=== PATIENT | female | born 1930 | race Caucasian/White ===

== ENCOUNTER → 2016-03-21 | Outpatient (CLI) | payer MEDICARE ==
[~2016-03-21] MED LIST: AMOXICILLIN875 MG; ASPIRIN81 M1 PO; CARVEDILOL25 MG PO; CELEBREX200 MG; CLARITIN10 MG PO; COREG12.5 M1 PO; HYDROCODONE-APA1 TA1; LEXAPRO10 MG PO; NEURONTIN100 MG PO; NORCO 10-325 T1 EACH PO; PROTONIX40 MG; SIMVASTATIN40 MG; SYNTHROID0.05 MG; VICODIN 5-3001 EACH PO; XANAX0.25 MG PO; ZOCOR10 MG PO; ZOLOFT100 MG
== END | disposition home or self-care (01) ==
LOC: NM 09:49
DX: M25.552 Pain in left hip (principal); M54.5 Low back pain; Z96.653 Presence of artificial knee joint, bilateral; M25.561 Pain in right knee; M25.562 Pain in left knee

== ENCOUNTER → 2016-05-08 | Day surgery (SDC) | payer MEDICARE ==
[2016-05-08 08:04] LABS: BASO % 0.1 % (0.0-1.0); EOS # 0.2 10*3/uL (0.0-0.4); HEMATOCRIT 39.6 % (37.0-47.0); HEMOGLOBIN 13.6 g/dl (12.0-16.0); IG # 0.1 10*3/uL (0.0-0.1); LYMPH # 3.5 10*3/uL (1.3-4.4); LYMPH % 38.1 % (27.0-41.0); MEAN CORPUSCULAR HGB 34.7 pg (27.0-31.0); MEAN CORPUSCULAR HGB CONC 34.3 g/dl (33.0-37.0); MEAN PLATELET VOLUME 8.7 fl (9.6-12.3); MONO # 0.8 10*3/uL (0.1-1.0); MONO % 8.7 % (3.0-9.0); NEUT # 4.7 10*3/uL (2.3-7.9); NEUT % 50.4 % (47.0-73.0); PLATELET COUNT AUTOMATED 204 10*3/uL (130-400); RED BLOOD COUNT 3.92 10*6/uL (4.10-5.10); RED CELL DISTRI WIDTH 13.3 % (0-14.5); WHITE BLOOD COUNT 9.2 10*3/uL (4.8-10.8)
[2016-05-08 08:13] LABS: PROTHROMBIN TIME 10.9 SECONDS (9.0-12.4)
== END | disposition home or self-care (01) ==
LOC: SDC 03-19 11:00 → LAB 02:20 → SDC 02:20 → LAB 09:00
PROVIDERS: Orthopaedic Surgery
DX: M54.5 Low back pain (principal); M41.9 Scoliosis, unspecified; F41.9 Anxiety disorder, unspecified; K21.9 Gastro-esophageal reflux disease without esophagitis; I10 Essential (primary) hypertension; E03.9 Hypothyroidism, unspecified; G47.30 Sleep apnea, unspecified; Z96.653 Presence of artificial knee joint, bilateral; Z83.3 Family history of diabetes mellitus; Z82.49 Family history of ischemic heart disease and other diseases of the circulatory system

== ENCOUNTER → 2016-05-20 | Outpatient (CLI) | payer MEDICARE | END | disposition home or self-care (01) | LOC: CT 08:50 | DX: R42 Dizziness and giddiness (principal) ==

== ENCOUNTER 2019-02-25 21:48 | Emergency (ER) | payer MEDICARE ==
[~2019-02-25] VITALS: Ht 165.1 cm; Wt 86.2 kg
[2019-02-25] MEDS ORDERED: PANTOPRAZOLE SO40 MG PO (21:53)
[2019-02-25] MEDS ORDERED: FAMOTIDINE40 MG PO (21:53)
[2019-02-25 21:54] VITALS: BP 116/66
[2019-02-25] MEDS ORDERED: MIRTAZAPINE15 M2 PO (21:54)
[2019-02-25 23:22] LABS: BASO % 0.3 % (0.0-1.0); EOS # 0.2 10*3/uL (0.0-0.4); EOS % 1.7 % (1.0-4.0); HEMOGLOBIN 14.2 g/dl (12.0-16.0); LYMPH % 9.9 % (27.0-41.0); MEAN CELL VOLUME 104.4 fl (81.0-99.0); MEAN CORPUSCULAR HGB 34.5 pg (27.0-31.0); MEAN PLATELET VOLUME 9.5 fl (9.6-12.3); MONO # 0.6 10*3/uL (0.1-1.0); MONO % 5.5 % (3.0-9.0); NEUT # 8.5 10*3/uL (2.3-7.9); NEUT % 82.4 % (47.0-73.0); PLATELET COUNT AUTOMATED 150 10*3/uL (130-400); RED BLOOD COUNT 4.12 10*6/uL (4.10-5.10); RED CELL DISTRI WIDTH 12.9 % (0-14.5); WHITE BLOOD COUNT 10.3 10*3/uL (4.8-10.8)
[2019-02-25 23:44] LABS: ALBUMIN 3.8 gm/dl (3.1-4.5); ALKALINE PHOSPHATASE 93 U/L (45-117); BUN 23 mg/dl (7-24); CHLORIDE 106 mmol/L (98-107); CREATININE 0.88 mg/dL (0.55-1.02); LIPASE 121 U/L (73-393); POTASSIUM 4.1 mmol/L (3.5-5.1); SGOT/AST 10 IU/L (3-35); SGPT/ALT 13 U/L (12-78); SODIUM 137 mmol/L (136-145); TOTAL PROTEIN 7.3 gm/dL (6.4-8.2)
[2019-02-26 02:59] LABS: BILIRUBIN NEGATIVE (NEGATIVE); BLOOD NEGATIVE (NEGATIVE); CLARITY CLEAR (CLEAR); COLOR YELLOW (YELLOW); GLUCOSE NEGATIVE (NEGATIVE); KETONE NEGATIVE (NEGATIVE); LEUKO ESTERASE NEGATIVE (NEGATIVE); NITRITE NEGATIVE (NEGATIVE); PH 6.5 (5.0-9.0); UROBILINOGEN 0.2 E.U./dl (0.2-1.0)
[2019-02-26 03:05] LABS: BACTERIA TRACE; COARSE GRANULAR CAST 0-2; EPITHELIAL CELLS 0-2; HYALINE CAST 0-2; WBC 0-2 wbc/hpf (0-5)
== END 2019-02-26 03:35 | disposition home or self-care (01) ==
LOC: ED 21:48
PROVIDERS: Emergency Medicine
DX: K52.9 Noninfective gastroenteritis and colitis, unspecified (principal); R11.2 Nausea with vomiting, unspecified; K21.9 Gastro-esophageal reflux disease without esophagitis; I10 Essential (primary) hypertension; E03.9 Hypothyroidism, unspecified; Z88.6 Allergy status to analgesic agent; Z79.899 Other long term (current) drug therapy; Z79.82 Long term (current) use of aspirin; Z95.0 Presence of cardiac pacemaker

== ENCOUNTER 2021-08-06 10:51 | Inpatient (IN) | payer MEDICARE ==
[~2021-08-06] VITALS: Ht 170.2 cm; Wt 92.1 kg
[~2021-08-06 10:51] MED LIST changes: +FAMOTIDINE40 MG PO; +MIRTAZAPINE15 M2 PO; +PANTOPRAZOLE SO40 MG PO
[2021-08-06 11:07] VITALS: BP 147/61
[2021-08-06 11:39] LABS: BASO % 0.3 % (0.0-1.0); EOS # 0.1 10*3/uL (0.0-0.4); EOS % 0.9 % (1.0-4.0); HEMATOCRIT 33.9 % (37.0-47.0); LYMPH # 1.7 10*3/uL (1.3-4.4); LYMPH % 24.4 % (27.0-41.0); MEAN CORPUSCULAR HGB 34.1 pg (27.0-31.0); MEAN CORPUSCULAR HGB CONC 34.8 g/dl (33.0-37.0); MEAN PLATELET VOLUME 9.1 fl (9.6-12.3); MONO # 1.1 10*3/uL (0.1-1.0); MONO % 16.3 % (3.0-9.0); NEUT # 3.9 10*3/uL (2.3-7.9); NEUT % 57.7 % (47.0-73.0); PLATELET COUNT AUTOMATED 174 10*3/uL (130-400); RED BLOOD COUNT 3.46 10*6/uL (4.10-5.10); RED CELL DISTRI WIDTH 12.3 % (0-14.5); WHITE BLOOD COUNT 6.8 10*3/uL (4.8-10.8)
[2021-08-06 11:40] LABS: ABG BASE EXCESS 2.3 mmol/L (-2.0-2.0); ARTERIAL BLOOD GAS PH 7.438 (7.35-7.45); ARTERIAL BLOOD GAS PO2 63.6 (80-90)
[2021-08-06 11:50] LABS: ACT PARTIAL THROMBO TIME 31.6 SECONDS (20.0-32.1)
[2021-08-06 11:55] LABS: ALKALINE PHOSPHATASE 78 U/L (45-117); BUN 11 mg/dl (7-24); CHLORIDE 98 mmol/L (98-107); POTASSIUM 3.8 mmol/L (3.5-5.1); SGOT/AST 11 IU/L (3-35); SGPT/ALT 12 U/L (12-78); SODIUM 130 mmol/L (136-145); TOTAL PROTEIN 6.7 gm/dL (6.4-8.2)
[2021-08-06] MEDS ORDERED: NEURONTIN300 MG PO (12:34)
[2021-08-06] MEDS ORDERED: DULOXETINE HCL30 MG PO (12:35)
[2021-08-06] MEDS ORDERED: LORAZEPAM0.5 MG PO (12:36)
[2021-08-06] MEDS ORDERED: ZOCOR40 MG PO (12:36)
[2021-08-06] MEDS ORDERED: B-12500 MC1 PO (12:37)
[2021-08-06] MEDS ORDERED: GOOD NEIGHBOR L10 MG PO (12:38)
[2021-08-06] MEDS ORDERED: LASIX20 MG PO (12:38)
[2021-08-06 13:08] LABS: BILIRUBIN 1+ (Negative); BLOOD Negative (Negative); CLARITY Clear (Clear); COLOR Dark Yellow (Yellow); GLUCOSE Negative (Negative); KETONE 2+ (Negative); LEUKO ESTERASE Negative (Negative); NITRITE Negative (Negative)
[2021-08-06 13:42] LABS: BACTERIA 1+; MUCOUS 2+
[2021-08-06 16:30] VITALS: BP 107/70
[2021-08-06 20:00] VITALS: BP 119/77
[2021-08-07] VITALS: BP 152/67
[2021-08-07 06:10] LABS: BUN 13 mg/dl (7-24); CHLORIDE 89 mmol/L (98-107); POTASSIUM 3.6 mmol/L (3.5-5.1); SODIUM 128 mmol/L (136-145)
[2021-08-07 06:12] LABS: BASO % 0.2 % (0.0-1.0); HEMATOCRIT 35.2 % (37.0-47.0); LYMPH # 1.3 10*3/uL (1.3-4.4); MEAN CELL VOLUME 96.2 fl (81.0-99.0); MEAN CORPUSCULAR HGB 33.9 pg (27.0-31.0); MEAN CORPUSCULAR HGB CONC 35.2 g/dl (33.0-37.0); MEAN PLATELET VOLUME 9.3 fl (9.6-12.3); MONO # 0.2 10*3/uL (0.1-1.0); MONO % 2.6 % (3.0-9.0); NEUT # 4.6 10*3/uL (2.3-7.9); NEUT % 75.4 % (47.0-73.0); PLATELET COUNT AUTOMATED 211 10*3/uL (130-400); RED BLOOD COUNT 3.66 10*6/uL (4.10-5.10); WHITE BLOOD COUNT 6.1 10*3/uL (4.8-10.8)
[2021-08-07 06:20] LABS: ALKALINE PHOSPHATASE 89 U/L (45-117); CHOLESTEROL 105 mg/dL (<200); CREATININE 0.66 mg/dL (0.55-1.02); FREE T4 1.45 ng/dl (0.76-1.46); LDL CHOLESTEROL 45 mg/dL (9-159); SGOT/AST 16 IU/L (3-35); SGPT/ALT 12 U/L (12-78); THYROID STIM HORMONE (HS) 0.653 uIU/ml (0.358-4.75); TOTAL PROTEIN 7.3 gm/dL (6.4-8.2); TRIGLYCERIDES 69 mg/dl (<150)
[2021-08-07 07:48] LABS: ABG BASE EXCESS 5.1 mmol/L (-2.0-2.0); ARTERIAL BLOOD GAS PH 7.483 (7.35-7.45); ARTERIAL BLOOD GAS PO2 82.4 (80-90)
[2021-08-07 08:00] VITALS: BP 136/63
[2021-08-07 12:00] VITALS: BP 133/53
[2021-08-07 16:00] VITALS: BP 139/67
[2021-08-07 20:00] VITALS: BP 122/75
[2021-08-08] VITALS: BP 130/78
[2021-08-08 05:34] LABS: CHLORIDE 91 mmol/L (98-107); CREATININE 0.94 mg/dL (0.55-1.02); POTASSIUM 3.7 mmol/L (3.5-5.1); SODIUM 129 mmol/L (136-145)
[2021-08-08 05:38] LABS: BUN 26 mg/dl (7-24)
[2021-08-08 08:00] VITALS: BP 134/71
[2021-08-08 12:00] VITALS: BP 129/64
[2021-08-08 15:48] VITALS: BP 134/56
[2021-08-08 20:00] VITALS: BP 126/58
[2021-08-09] VITALS: BP 145/45
[2021-08-09 05:34] LABS: BUN 30 mg/dl (7-24); CHLORIDE 89 mmol/L (98-107); CREATININE 0.86 mg/dL (0.55-1.02); POTASSIUM 3.8 mmol/L (3.5-5.1); SODIUM 126 mmol/L (136-145)
[2021-08-09 08:00] VITALS: BP 156/70
[2021-08-09 12:00] VITALS: BP 146/68
[2021-08-09 16:00] VITALS: BP 146/60
[2021-08-09 20:00] VITALS: BP 118/80; BP 15/66
[2021-08-10] VITALS: BP 144/74
[2021-08-10 06:10] LABS: BASO % 0.2 % (0.0-1.0); HEMATOCRIT 37.1 % (37.0-47.0); LYMPH # 1.6 10*3/uL (1.3-4.4); LYMPH % 16.6 % (27.0-41.0); MEAN CELL VOLUME 93.9 fl (81.0-99.0); MEAN CORPUSCULAR HGB 33.9 pg (27.0-31.0); MEAN CORPUSCULAR HGB CONC 36.1 g/dl (33.0-37.0); MEAN PLATELET VOLUME 8.8 fl (9.6-12.3); MONO # 0.5 10*3/uL (0.1-1.0); MONO % 5.5 % (3.0-9.0); NEUT # 7.4 10*3/uL (2.3-7.9); NEUT % 75.9 % (47.0-73.0); PLATELET COUNT AUTOMATED 246 10*3/uL (130-400); RED BLOOD COUNT 3.95 10*6/uL (4.10-5.10); RED CELL DISTRI WIDTH 11.4 % (0-14.5); WHITE BLOOD COUNT 9.8 10*3/uL (4.8-10.8)
[2021-08-10 06:27] LABS: BUN 26 mg/dl (7-24); CHLORIDE 87 mmol/L (98-107); CREATININE 0.81 mg/dL (0.55-1.02); POTASSIUM 4.1 mmol/L (3.5-5.1); SODIUM 124 mmol/L (136-145)
[2021-08-10 08:00] VITALS: BP 145/75
[2021-08-10 12:00] VITALS: BP 125/56
[2021-08-10 12:37] LABS: URINE CHLORIDE, RANDOM < 10 mmol/L
[2021-08-10 16:00] VITALS: BP 140/58
[2021-08-10 20:00] VITALS: BP 141/71
[2021-08-11] VITALS: BP 136/50
[2021-08-11 05:53] LABS: BUN 25 mg/dl (7-24); CHLORIDE 90 mmol/L (98-107); CREATININE 0.71 mg/dL (0.55-1.02); POTASSIUM 4.3 mmol/L (3.5-5.1); SODIUM 127 mmol/L (136-145)
[2021-08-11 08:00] VITALS: BP 147/62
[2021-08-11 12:00] VITALS: BP 137/57
[2021-08-11] MEDS ORDERED: LISINOPRIL5 MG PO (12:24)
[2021-08-11] MEDS ORDERED: PREDNISONE10 MG PO (12:24)
[2021-08-11] MEDS ORDERED: DOXYCYCLINE HY100 M3 PO (12:24)
[2021-08-11] MEDS ORDERED: CARVEDILOL6.25 MG PO (12:24)
== END 2021-08-11 15:25 | disposition home health service (06) | DRG 177 ==
LOC: ED 10:51 → EDHOLD 13:51 → 4E 13:51
PROVIDERS: Emergency Medicine; Nurse Practitioner Family; Registered Nurse; Student in an Organized Health Care Education/Training Program; ADMIT Internal Medicine; ATTEND Internal Medicine
PROC: 5A09357 Assistance with Respiratory Ventilation, Less than 24 Consecutive Hours, Continuous Positive Airway Pressure (ICD-10-PCS; principal; 2021-08-10)
DX: J15.6 Pneumonia due to other Gram-negative bacteria (principal); U07.1 COVID-19; J96.01 Acute respiratory failure with hypoxia; E43 Unspecified severe protein-calorie malnutrition; E87.1 Hypo-osmolality and hyponatremia; Z96.653 Presence of artificial knee joint, bilateral; I50.9 Heart failure, unspecified; R73.9 Hyperglycemia, unspecified; R00.1 Bradycardia, unspecified; I25.10 Atherosclerotic heart disease of native coronary artery without angina pectoris; K21.9 Gastro-esophageal reflux disease without esophagitis; F41.1 Generalized anxiety disorder; G62.9 Polyneuropathy, unspecified; G47.33 Obstructive sleep apnea (adult) (pediatric); Z68.32 Body mass index [BMI] 32.0-32.9, adult; Z88.5 Allergy status to narcotic agent; Z79.899 Other long term (current) drug therapy; Z82.49 Family history of ischemic heart disease and other diseases of the circulatory system; Z82.0 Family history of epilepsy and other diseases of the nervous system; Z79.82 Long term (current) use of aspirin